=== PATIENT | male | born 1965 | race Caucasian/White ===

== ENCOUNTER 2024-01-10 17:29 | Emergency (ER) | payer OTHER ==
[~2024-01-10] VITALS: Ht 185.4 cm; Wt 93.2 kg
[2024-01-10 17:42] VITALS: BP 136/71; PULSE 97; O2SAT 95
[2024-01-10] MEDS ORDERED: HYDR-3965 PO (18:12)
[2024-01-10 19:35] VITALS: RESP 17; TEMP 98.6
== END 2024-01-10 19:35 | disposition home or self-care (01) ==
LOC: ER 17:30
DX: S62.325A Displaced fracture of shaft of fourth metacarpal bone, left hand, initial encounter for closed fracture (principal); Z79.899 Other long term (current) drug therapy; W19.XXXA Unspecified fall, initial encounter; Y93.89 Activity, other specified; Y92.89 Other specified places as the place of occurrence of the external cause; Y99.8 Other external cause status
CPT/HCPCS: 29125; 73130; 99284; A6449